=== PATIENT | female | born 1935 | race Caucasian/White ===

== ENCOUNTER 2022-11-29 16:29 | Emergency (ER) | payer MEDICARE, MEDICAID ==
[~2022-11-29] VITALS: Ht 149.9 cm; Wt 49.9 kg
[2022-11-29 16:34] VITALS: BP_SYST 121
--- NOTE | 2022-11-29 16:39 | NUR ---
Placed in room 02 . Placed on security monitor, blood pressure machine and pulse oximeter. To gown for exam. Side rails up. Report given to MARTHA STOREY
--- NOTE | 2022-11-29 16:44 | NUR ---
ER Dr. CONNOLLY at bedside examining patient.
--- NOTE | 2022-11-29 16:52 | NUR ---
pt to ct via [facility]. no acute distress
--- NOTE | 2022-11-29 17:01 | NUR ---
pt back from ct via gurney, no acute distress noted. breathing even and unlabored. safety measures in place
--- NOTE | 2022-11-29 17:09 | NUR ---
lab at bedside
[2022-11-29 17:33] LABS: BASOPHILS # (AUTO) 0.1 K/uL (0.0-0.2); BASOPHILS % (AUTO) 0.7 % (0.0-2.0); EOSINOPHILS # (AUTO) 0.2 K/uL (0.0-0.4); EOSINOPHILS % (AUTO) 2.4 % (0.0-4.0); HEMATOCRIT 35.2 % (36-48); HEMOGLOBIN 11.8 g/dL (12.0-16.0); LYMPHOCYTES # (AUTO) 1.9 K/uL (1.0-5.5); LYMPHOCYTES % (AUTO) 21.6 % (20.5-51.5); MEAN CORPUSCULAR HEMOGLOBIN 31 pg (27-31); MEAN CORPUSCULAR HGB CONC 34 % (32-36); MEAN CORPUSCULAR VOLUME 92 fL (79.0-98.0); MONOCYTES # (AUTO) 0.7 K/uL (0.0-1.0); MONOCYTES % (AUTO) 7.6 % (1.7-9.3); NEUTROPHILS % (AUTO) 67.7 % (40.0-70.0); PLATELET COUNT (AUTO) 173 K/uL (130-430); RED BLOOD CELL COUNT(AUTO) 3.85 MIL/uL (4.2-6.2); WHITE BLOOD COUNT (AUTO) 8.9 K/uL (4.8-10.8)
[2022-11-29 17:45] LABS: ALANINE AMINOTRANSFERASE 17 U/L (12-78); ALBUMIN 3.2 g/dL (3.4-4.8); ANION GAP 7 (5-15); ASPARTATE AMINOTRANSFERASE 18 U/L (10-37); CALCIUM 9.5 mg/dL (8.4-11.0); CHLORIDE 100 mmol/L (98-107); CREATININE 1.27 mg/dL (0.55-1.30); GLUCOSE 110 mg/dL (70-99); TOTAL BILIRUBIN 0.4 mg/dL (0.0-1.0); UREA NITROGEN, BLOOD 19 mg/dL (8-21)
[2022-11-29] MEDS ORDERED: METO25TA6 PO (18:20)
[2022-11-29] MEDS ORDERED: APIX5TAB PO (18:20)
[2022-11-29] MEDS ORDERED: MEMA10TA PO (18:20)
[2022-11-29] MEDS ORDERED: LOSA100T3 PO (18:20)
[2022-11-29] MEDS ORDERED: AMLO5TAB4 PO (18:20)
--- NOTE | 2022-11-29 18:36 | NUR ---
DISCHARGE INSTRUCTIONS REVIEWED WITH PT'S DAUGHTER EJ, BOTH EJ AND PT VERBALIZED UNDERSTANDING AND DENIED ANY QUESTIONS. PT AMBULATED FROM ED WITH STEADY GAIT
[2022-11-29 18:37] VITALS: BP_SYST 125
== END 2022-11-29 18:36 | disposition home or self-care (01) ==
LOC: SED 16:29
DX: I48.91 Unspecified atrial fibrillation (principal); R55 Syncope and collapse; Z79.899 Other long term (current) drug therapy
CPT/HCPCS: 36415; 70450-TC; 71045; 76376; 80053; 84484; 85025; 93005; 99285